=== PATIENT | female | born 1980 | race Caucasian/White ===

== ENCOUNTER → 2024-01-16 10:25 | Outpatient (BNVA) | payer BC, SELFPAY | PROVIDERS: Visit Provider Physician Assistant Surgical ==

== ENCOUNTER 2024-02-09 14:33 | Outpatient (AMB) | payer BC, SELFPAY ==
--- NOTE | 2024-02-09 14:33 | MHC.OFFVISWM ---
Intake VS Expanded 02/09/24 14:40 Height 5 ft 6.5 in Weight 217 lb BMI 34.5 Intake Visit Reasons: [employer] [facility] [employer] Required: No Allergies Penicillins Allergy (Severe, Verified 01/16/24 11:27) Anaphylaxis latex Allergy (Mild, Verified 01/16/24 11:27) HIVES Medication List - Last Reconciled 02/09/24 by FERNANDA Subramanian No Known Home Meds HPI HPI Comments History of Present Illness Details Pt is here to start the [facility] Weight Management surgical weight loss program. She heard about our program Her goal is to lose weight and achieve a healthy lifestyle. She reports first being concerned about her weight for the last 10 years, highest weight to date was 217. Current weight is 217 pounds with a BMI of 34.5. She has tried multiple methods of weight loss including fad diets, intermittent fasting without permanent results. She lives with and kids. She works 1 days per week as [employer]. She wakes at:?430 am, and goes to bed at?930 pm. Dinner is at 5 to 730 depending on the day. Breakfast: yogurt and granola 1/4 c. coffee (black) AM snack: protein bar- True bar - 12 gm protein, 190 jackie Lunch: leftover or pizza PM snack: skip Dinner: chicken, rice, veg After dinner: skip Other snacks: candy Liquids: 36 oz selzer, no soda, Alcohol/marijuana/tobacco intake: none Exercise: try to walk outside, broke ankle two years ago thinking of joining yoga class rowing machine and stationary bike at home. GERD score: 0 AGUILA score: 2 ESS score: 2 QOL score: 66 PFSH Surgical History (Updated 01/16/24 @ 11:32 by Aliza Stern CMA) Hx of tonsillectomy Hx of eye surgery Hx of cholecystectomy Hx of tubal ligation Hx of arthroscopy Family History (Updated 01/16/24 @ 11:30 by Aliza Stern CMA) Mother Asthma COPD (chronic obstructive pulmonary disease) Hypertension Diabetes Father Epilepsy Diabetes Brother Asthma Fatty liver Daughter No problems noted. Son Scoliosis Son No problems noted. Son No problems noted. Social History (Updated 01/16/24 @ 11:31 by Aliza Stern CMA) Alcohol intake: never Patient Tobacco Use Status: Never used Tobacco Assessment & Plan Assessment & Plan (1) Obesity (BMI 30-39.9): Code(s): E66.9 - Obesity, unspecified Plan: This is a?43 yo female who will start our [facility] program.? ? Adequate sleep of 7-8 hours per night discussed, awakening at 430 and going to bed around 930 ? You had mentioned that you already purchased a body composition analyzer scale, so be sure and check weight weekly. Please send me the data from the grid from the kindra connected to your scale. The best time to do this is first thing in the morning after going to the bathroom. 1. Nutritional counseling: Be sure to careful read the number of scoops per shake Start with 2 Orgain protein shakes, First shake (2 scoops in 12 oz unsweetened oat milk) at 530am-730am, 1 protein bar (True bars) at 930am-1130am. second shake (1.5 scoops in 8 oz unsweetened oat milk) at 130pm-330pm Dinner at 6pm (9 forks of protein and 9 forks of salad/vegetables). Meal to include lean meat (beef, fish, pork, turkey, chicken), cooked vegetables or a salad with olive oil and/or fruits (berries, pears, apples, kiwi). Avoid salt, breads, potatoes, rice, pasta, desserts. 1/2-3/4 cup fresh berries after dinner if you wish or an apple, or 2 kiwiws, or pear, or orange if you wish Try to drink 64 oz of water daily and avoid soda and juices. ?2. Each shake would be drunk slowly, like coffee in a period of 2 hours. ?3. Cut each bar in 4 pieces and eat each piece in 30 min ?to make each bar last 2 hours. ?4. I emphasized the importance of measuring accurately the food portion and measure it carefully when serving the food on the plate ?5. The meal portions include 9 full-size forks of meat and 9 full-size forks of salad. You always eat the meat portion but you can replace up to half of the forks of salad/vegetables with rice, potatoes or pasta, or a fruit ?if you like. The less you do it the better weight loss will be. ?6. One full-size fork is what can be scooped on the fork without falling aside and not what can be bit with the fork. Use regular forks like those you find in a typical restaurant. ?7.? Please send me weight measurements as soon as possible and then once a week. Always include your diet and exercise plan. Alternatively come weekly at the office for weight checks and send me the measurements. ?8. Exercise counseling: Begin by watching a stretching for beginners video. Start slowly and begin to stretch your muscles. You should do this before and after each exercise session to prevent injury. You can definitely use the stationary bike that you have at home for exercise. The easiest would be to chose the fat-burn or interval training program on the machine and do this until you reach the 300 calorie burned goal. Alternatively, you can manually adjust the resistance, (resistance of 2-8 with a goal speed of 12 mph), increasing by 1 every 3 minutes to a max of 8 for now or the highest you can comfortable still do while maintaining a speed of around 12. Then decrease in the same fashion. Increasing and decreasing until you burn 300 or more calories. Tracking calories is essential. 9. Alternatively start walking outside daily, tracking calories with a goal of 300 calories per day, daily. You can download the kindra [employer] which can track your time, distance and calories while walking outside. You press start in the kindra when you start and then stop when you are finished. 10.? It is important to communicate your weight by text weekly and if you are having any problems with the plans. 11. Please follow the diet plan exactly, without any change. If you do not like something about the plan or you feel hungry, you need to communicate with me so I can help you revise the plan. You should not change the plan yourself. Text me at [phone] 12. Goal is to lose at least 8-10 pounds in the first month Patient is morbidly obese and is not considered stable at this time.?I spent a total of 70 minutes reviewing/updating records, examining the patient and counseling the patient on weight management as detailed above. Telehealth Telehealth Location of provider rendering services: practice address Location of patient: address on file Patient Identification confirmed using: Name, : Yes Telehealth method: voice only Patient verbally consented to treatment: Yes Patient verbally consented to billing insurance company: Yes Patient informed of any privacy concerns related to visit: Yes Minutes spent on Phone/Video with Pt.: 40 Coding Level of Care Code Tele New Pt Level 4 (84995) Diagnoses Obesity (BMI 30-39.9) E66.9 Time Spent (min) 60
[2024-02-09 14:40] VITALS: BMI 34.5
== END 2024-02-09 17:00 | disposition home or self-care (01) ==
LOC: HO.HBS 14:33
PROVIDERS: PCP Internal Medicine; Visit Provider Physician Assistant Surgical
DX: E66.9 Obesity, unspecified (principal); Z68.34 Body mass index [BMI] 34.0-34.9, adult
CPT/HCPCS: 99443

== ENCOUNTER → 2024-02-09 14:33 | Outpatient (BNVA) | payer BC, SELFPAY | PROVIDERS: PCP Internal Medicine; Visit Provider Physician Assistant Surgical ==